=== PATIENT | female | born 1945 | race Caucasian/White ===

== ENCOUNTER 2018-05-01 09:26 | Day surgery (SDC) | payer MEDICARE ==
[2018-05-01] MEDS ORDERED: PROPOFOL 10 MG/ML VIAL IV ONE (09:27)
[2018-05-01] MEDS ORDERED: LIDOCAINE 2% MDV (20MG/ML) 20ML VIAL IV ONE (09:27)
--- NOTE | 2018-05-04 11:30 | Operative Note ---
DATE OF SURGERY: 05/01/2018 SURGEON: Giovanna Acosta MD OPERATION: COLONOSCOPY. INDICATIONS: This is a 72-year-old female with history of colon polyps, last colonoscopy about 5 years ago, who presented for surveillance colonoscopy. POSTOPERATIVE DIAGNOSES: 1. Scattered diverticulosis. 2. Otherwise normal colon and terminal ileal mucosa. ANESTHESIA: Sedation is per Anesthesia. Pulse oximetry was monitored throughout the procedure to maintain O2 saturation of 90% or greater. Supplemental oxygen was administered via nasal cannula. Cardiac and vital signs were monitored throughout the duration of the procedure, and they were stable. The procedure of colonoscopy and risks and alternatives of the procedure, including the risk of bleeding and perforation, among others, were explained to the patient who voiced understanding and agreed to have the procedure done. Physical examination was performed, and the patient was found stable for sedation. PROCEDURE: The patient was placed in the left lateral position. Sedation was initiated. A digital rectal exam was performed and showed some mild external hemorrhoids with no palpable rectal masses. An Olympus PCF-180AL colonoscope was then inserted into the rectum under direct visualization. It was advanced to the cecum without difficulty. The ileocecal valve and appendiceal orifice were identified and photographed. The colonic mucosa was carefully examined upon introduction of the colonoscope. There were scattered diverticula noted in the sigmoid, descending, and transverse colon. There were no other lesions noted. The colonoscope was then withdrawn while carefully examining the colonic mucosal surfaces. No other lesions were noted. The ileocecal valve was intubated and terminal ileal mucosa was inspected for about 10 cm and it appeared normal. The rest of the colonic mucosa appeared normal. In the rectum, retroflexion was performed and grade 1 internal hemorrhoids were noted. The colonoscope was then withdrawn and the procedure was terminated. The patient tolerated the procedure well without any immediate complications. The patient remained with stable vital signs and was transferred to the recovery room. RECOMMENDATIONS: 1. The patient should be on a high-fiber diet. 2. The patient is to have a repeat colonoscopy for surveillance in 5 years. Thank you for allowing me to participate in the care of your patient. CC: Los FOSTER
== END 2018-05-01 11:02 | disposition home or self-care (01) ==
LOC: HOP 09:26
PROVIDERS: ATTEND Internal Medicine Gastroenterology
DX: Z12.11 Encounter for screening for malignant neoplasm of colon (principal); Z86.010 Personal history of colon polyps; K57.30 Diverticulosis of large intestine without perforation or abscess without bleeding; E11.9 Type 2 diabetes mellitus without complications; I10 Essential (primary) hypertension; I50.9 Heart failure, unspecified; J44.9 Chronic obstructive pulmonary disease, unspecified
CPT/HCPCS: 00812; G0105

== ENCOUNTER 2018-10-23 06:58 | Emergency (ER) | payer MEDICARE ==
--- NOTE | 2018-10-23 07:13 | Emergency Department Record ---
History of Present Illness - General Stated Complaint: NI Time Seen by Provider: 10/23/18 07:00 Source: Patient, Family Mode of Arrival: Ambulatory Limitations: No limitations - History of Present Illness Initial Comments: 72 yo presents with shortness of breath for the last 3 days. She felt like she had a "cold" for the last 2 weeks. She has COPD,CAD,CHF and atrial fibrillation. She is a former smoker. She is coughing with thick sputum. She denies fever. She states the chest feels heavy with deep coughing. No leg edema. She has known CAD. She had a stent place in the [place] in 2001. She reports she has not seen a supervisor taping in over a decade. She does not have a current supervisor taping. Dr Escamilla is her PCP. She is not on any home oxygen. MD Complaint: Shortness of breath -: Days(s) Severity: Moderate Quality: Aching Consistency: Constant Improves With: Bronchodilators Worsens With: Coughing Known History Of: COPD, Other (Atrial Fibrillation) Context: Recent URI Associated Symptoms: Chest pain, Cough Treatments Prior to Arrival: Bronchodilator - Related Data Home Medications Medication Instructions Recorded Confirmed Last Taken Aspirin [Aspir-Low] 1 tab PO DAILY 10/23/18 10/23/18 10/22/18 Biotin 5,000 mcg PO DAILY 10/23/18 10/23/18 10/23/18 Clopidogrel Bisulfate [Clopidogrel] 1 tab PO DAILY 10/23/18 10/23/18 10/22/18 Insulin Glargine,Hum.rec.anlog 40 unit SQ QAM 10/23/18 10/23/18 10/22/18 [Lantus] Previous Rx's Medication Instructions Recorded Furosemide [Lasix] 40 mg PO DAILY #0 05/21/14 Ipratropium/Albuterol [Duoneb] 3 ml INH Q4H #120 ampul.neb. 05/21/14 Allergies Allergy/AdvReac Type Severity Reaction Status Date / Time codeine Allergy Unknown VOMITING Verified 05/16/14 10:11 warfarin Allergy Unknown RASH Verified 05/16/14 10:11 morphine AdvReac VOMITING Verified 10/23/18 07:01 Review of Systems Constitutional: Reports: Malaise, Weakness. Denies: Chills, Fever Eyes: Denies: Eye discharge, Eye pain ENT: Reports: Congestion. Denies: Throat pain Respiratory: Reports: Cough, Dyspnea, Wheezes Cardiovascular: Reports: Chest pain, Dyspnea on exertion Endocrine: Reports: Fatigue Gastrointestinal: Denies: Abdominal pain, Diarrhea, Nausea, Vomiting Genitourinary: Denies: Discharge, Dysuria, Frequency Musculoskeletal: Denies: Arthralgia, Back pain, Myalgia Skin: Denies: Bruising, Change in color, Rash Neurological: Denies: Confusion, Headache Psychiatric: Denies: Anxiety Hematological/Lymphatic: Denies: Easy bleeding, Easy bruising Past Medical History - SOCIAL HISTORY Smoking Status: Former smoker - RESPIRATORY Hx Respiratory Disorders: Yes Hx Bronchitis: Yes Hx COPD: Yes Hx Pneumonia: Yes - CARDIOVASCULAR Hx Cardio Disorders: Yes Hx CHF: Yes Hx Hypertension: Yes Hx Irregular Heartbeat: Yes Comment:: viral fluid around her heart - NEURO Hx Neuro Disorders: No - GI Hx GI Disorders: No Comment:: gallbladder removed - Hx Genitourinary Disorders: No - ENDOCRINE Hx Endocrine Disorders: Yes Hx Diabetes: Yes (type 2) Hx Thyroid Disease: Yes (hypo) - MUSCULOSKELETAL Hx Musculoskeletal Disorders: Yes Hx Arthritis: Yes Comment:: back surgery - PSYCH Hx Psych Problems: No - HEMATOLOGY/ONCOLOGY Hx Hematology/Oncology Disorders: No Family Medical History Hx Cancer: Brother/Sister Hx Heart Disease: Mother Hx Resp Disorders: Brother/Sister Physical Exam - General General Appearance: Alert, Oriented x3, Cooperative, Mild distress Limitations: No limitations - Head Head exam: Atraumatic, Normal inspection - Eye Eye exam: Normal appearance. negative: Conjunctival injection - ENT ENT exam: Normal exam, Mucous membranes moist Ear exam: Normal external inspection Nasal Exam: Normal inspection Mouth exam: Normal external inspection - Neck Neck exam: Normal inspection - Respiratory Respiratory exam: Accessory muscle use, Prolonged expiratory, Rhonchi, Wheezes. negative: Normal lung sounds bilaterally - Cardiovascular Cardiovascular Exam: Irregular rhythm, Tachycardia Peripheral Pulses: 2+: Radial (R), Radial (L) - GI/Abdominal GI/Abdominal exam: Soft - Rectal Rectal exam: Deferred - exam: Deferred - Extremities Extremities exam: Normal inspection. negative: Pedal edema, Tenderness - Back Back exam: Denies: CVA tenderness (R), CVA tenderness (L) - Neurological Neurological exam: Alert, Oriented X3 - Psychiatric Psychiatric exam: Normal affect, Normal mood - Skin Skin exam: Dry, Intact, Normal color, Warm Course - Reevaluation(s) Reevaluation #1: EKG #1: 07:35 Rate: 162 Rhythm: afib [place]: L Intervals: normal ST segments: poor R wave production Prior: 04/2014 rate controlled afib 10/23/18 07:38 10/23/18 07:40 The wheeze improved with the Duoneb treatment Solumedrol given 125mg IVP Heparin Bolus and Drip ordered for the Afib with RVR 10/23/18 08:48 K is 4.0 Mg is 1.7 The WBC count is 28. 10/23/18 08:51The CXR was read as consistent with COPD and RLL infiltrate Antibiotics ordered 10/23/18 08:57 Troponin 0.01 BNPPro- 641 Digoxin 0.5 10/23/18 09:07 She is tolerating the cardizem drip. HR average is decreasing. Rocephin and Zithromax ordered for pneumonia Magnesium will be given 10/23/18 09:25 [facility] at [facility] [place] contacted. Dr Preciado accepts the patient for transfer to [facility] [place] 10/23/18 09:26 Influenza Negative Medical Decision Making - Lab Data Result diagrams: 10/23/18 07:00 10/23/18 07:00 Critical Care Time Critical Care Time: Yes Total Critical Care Time: 90 Disposition Disposition: Transfer Clinical Impression: Atrial fibrillation, COPD (chronic obstructive pulmonary disease), Pneumonia Disposition: Acute Care Hospital Transfer Transfer To: [facility] [place] Reason For Transfer: COPD,AFib Accepting Physician: Ilana Time Discussed w/Accepting Physician: 09:26 Condition: (3) Guarded Time of Disposition: 08:58 Quality - Quality Measures Quality Measures: N/A - Blood Pressure Screening Does Patient Have Any of the Following: Active Dx of HTN Blood Pressure Classification: Pre-Hypertensive BP Reading Systolic Measurement: 129 Diastolic Measurement: 86 Screening for High Blood Pressure: Patient Exclusion, Hx of HTN [G9744]
[2018-10-23] MEDS ORDERED: HEPARIN SODIUM 1000 UNIT/1 ML 10ML VIAL IVP ONE (07:16)
[2018-10-23] MEDS ORDERED: DILTIAZEM 25MG/5ML VIAL IV ONE (07:16)
[2018-10-23] MEDS ORDERED: IPRATROPIUM/ALBUTEROL (0.5MG/3MG) NEB INH ONE (07:17)
[2018-10-23] MEDS ORDERED: ALBUTEROL (0.5% CONCENTRATED) 2.5 MG/0.5 ML VIAL.NEB INH ONE (07:17)
[2018-10-23] MEDS ORDERED: HEPARIN SODIUM/D5W 25,000 UNITS/500 ML BAG IV SCH (07:30)
[2018-10-23 08:17] LABS: HEMATOCRIT 44.5 % (35.0-47.0); HEMOGLOBIN 12.8 gm/dl (11.6-16.0); MEAN CELL VOLUME 87.3 fl (81-97); MEAN CORPUSCULAR HEMOGLOBIN 25.1 pg (27-33); MEAN CORPUSCULAR HGB CONC 28.8 g/dl (32-36); MEAN PLATELET VOLUME 10.6 fl (7.4-10.4); PLATELET COUNT 334 K/uL (130-400); RED CELL DISTRIBUTION WIDTH 15.3 % (11.5-14.5)
[2018-10-23 08:22] LABS: WHITE BLOOD COUNT W/O DIFF 28.1 K/uL (4.2-12.2)
[2018-10-23] MEDS ORDERED: DILTIAZEM HCL 125 MG in 0.9 % SODIUM CHLORIDE 100ML 100 ML IV SCH (08:30)
[2018-10-23 08:33] LABS: INR 1.1; PARTIAL THROMBOPLASTIN TIME 22.6 SECONDS (24.5-39.1); PROTHROMBIN TIME (PATIENT) 11.4 SECONDS (9.5-12.1)
[2018-10-23 08:46] LABS: BLOOD UREA NITROGEN 9 mg/dL (8-23); CREATININE 0.8 mg/dL (0.5-0.9); EST GLOMERULAR FILTRATION RATE > 60 mL/min; TOTAL PROTEIN 8.2 g/dL (6.6-8.7)
[2018-10-23] MEDS ORDERED: MAGNESIUM SULFATE 16 MEQ in 0.9 % SODIUM CHLORIDE 100ML 100 ML IV ONE (08:47)
[2018-10-23 08:48] LABS: GLUCOSE,RANDOM 177 mg/dL (74-109)
[2018-10-23] MEDS ORDERED: AZITHROMYCIN 500 MG TABLET PO ONE (08:49)
[2018-10-23] MEDS ORDERED: CEFTRIAXONE 1GM/50ML BAG 1 GM/50 ML BAG IVPB ONE (08:50)
[2018-10-23 08:51] LABS: ALBUMIN 4.1 g/dL (4.0-5.0); ALKALINE PHOSPHATASE 91 U/L (35-104); ALT/SGPT 10 U/L (<33); AST/SGOT 17 U/L (10.0-35.0); DIGOXIN 0.5 ng/mL (0.8-2.0)
[2018-10-23 08:52] LABS: INFLUENZA A NEGATIVE (NEGATIVE); INFLUENZA B NEGATIVE (NEGATIVE)
--- NOTE | 2018-10-27 09:30 | RADIOLOGY REPORT ---
DATE OF SERVICE: 10/23/2018. PORTABLE CHEST CLINICAL HISTORY: Difficulty breathing. TECHNIQUE: Portal AP upright view of the chest was performed. FINDINGS: Cardiomegaly. Lungs are hyperinflated. Right lower lobe infiltrate/pleural effusion. Osseous structures normal. IMPRESSION: 1. Lungs are hyperinflated. 2. Right lower lobe infiltrate/pleural effusion. MTDD
== END 2018-10-23 10:20 | disposition short-term general hospital (02) ==
LOC: ER 06:58
DX: I48.0 Paroxysmal atrial fibrillation (principal); J18.9 Pneumonia, unspecified organism; J44.9 Chronic obstructive pulmonary disease, unspecified; I50.9 Heart failure, unspecified; I10 Essential (primary) hypertension; E11.9 Type 2 diabetes mellitus without complications; I25.10 Atherosclerotic heart disease of native coronary artery without angina pectoris; Z87.891 Personal history of nicotine dependence
CPT/HCPCS: 99291 ×2; 96365; 96366; 96375; 96368; 99292; 83735; 85730; 85610; 80053; 87400; 84484; 80162; 85027; 83880; 71045; 94640 ×2; 93005; 93010; J0696

== ENCOUNTER 2019-05-22 20:38 | Observation (INO) | payer MEDICARE ==
[2019-05-22] MEDS ORDERED: ALBUTEROL SULFATE (0.083%) 2.5 MG/3 ML NEB INH ONE (20:51)
--- NOTE | 2019-05-22 20:55 | Emergency Department Record ---
History of Present Illness - General Chief Complaint: Shortness of breath Stated Complaint: NI Time Seen by Provider: 05/22/19 20:51 Source: Patient, Family Mode of Arrival: EMS Limitations: No limitations - History of Present Illness Initial Comments: The patient is here due to a 3 day hx of cough, congestion, sputum production and SOB. She has a long hx of COPD and does wear 2 liters of home O2. The patient denies any fever, chills, CP, back pain or AP. MD Complaint: Cough, Shortness of breath Onset/Timin -: Days(s) Known History Of: Congestive heart failure, COPD Associated Symptoms: Cough, Sputum production Treatments Prior to Arrival: Oxygen - Related Data Home Oxygen Therapy: Yes Home Oxygen Amount: 2 Liters Home Medications Medication Instructions Recorded Confirmed Last Taken Apixaban [Eliquis] 5 mg PO BID 05/22/19 05/22/19 Unknown Chlordiazepoxide HCl 25 mg PO BID PRN 05/22/19 05/22/19 05/15/19 Previous Rx's Medication Instructions Recorded Furosemide [Lasix] 40 mg PO DAILY #0 05/21/14 Ipratropium/Albuterol [Duoneb] 3 ml INH Q4H #120 ampul.neb. 05/21/14 Allergies Allergy/AdvReac Type Severity Reaction Status Date / Time codeine Allergy Unknown VOMITING Verified 05/16/14 10:11 warfarin Allergy Unknown RASH Verified 05/16/14 10:11 morphine AdvReac VOMITING Verified 10/23/18 07:01 Travel Screening - Travel/Exposure Within Last 30 Days Have you traveled within the last 30 days?: No - Travel/Exposure Within Last Year Have you traveled outside the [place] in the last year?: No - Additonal Travel Details Have you been exposed to anyone with a communicable illness?: No - Travel Symptoms Symptom Screening: None Review of Systems Constitutional: Reports: Malaise. Denies: Chills, Fever Eyes: Denies: Eye discharge ENT: Reports: Congestion Respiratory: Reports: Cough, Dyspnea. Denies: Hemoptysis Cardiovascular: Denies: Chest pain Endocrine: Reports: Fatigue Gastrointestinal: Denies: Nausea Genitourinary: Denies: Dysuria Musculoskeletal: Denies: Arthralgia Neurological: Denies: Abnormal gait Past Medical History - SOCIAL HISTORY Smoking Status: Former smoker Alcohol Use: None Drug Use: None - RESPIRATORY Hx Respiratory Disorders: Yes Hx Bronchitis: Yes Hx COPD: Yes Hx Pneumonia: Yes - CARDIOVASCULAR Hx Cardio Disorders: Yes Hx CHF: Yes Hx Hypertension: Yes Hx Irregular Heartbeat: Yes Comment:: viral fluid around her heart - NEURO Hx Neuro Disorders: No - GI Hx GI Disorders: No Comment:: gallbladder removed - Hx Genitourinary Disorders: No - ENDOCRINE Hx Endocrine Disorders: Yes Hx Diabetes: Yes (type 2) Hx Thyroid Disease: Yes (hypo) - MUSCULOSKELETAL Hx Musculoskeletal Disorders: Yes Hx Arthritis: Yes Comment:: back surgery - PSYCH Hx Psych Problems: No - HEMATOLOGY/ONCOLOGY Hx Hematology/Oncology Disorders: No Family Medical History Any Significant Family History?: No Hx Cancer: Brother/Sister Hx Heart Disease: Mother Hx Resp Disorders: Brother/Sister Physical Exam - General General Appearance: Alert, Oriented x3, Cooperative, Mild distress (due to NI but she is speaking in full sentences.) - Eye Eye exam: Normal appearance, PERRL - ENT Throat exam: Normal inspection. negative: Tonsillar erythema, Tonsillar exudate - Neck Neck exam: Normal inspection, Full ROM. negative: Tenderness - Respiratory Respiratory exam: Decreased breath sounds. negative: Normal lung sounds bilaterally, Accessory muscle use, Respiratory distress, Rhonchi, Stridor, Wheezes - Cardiovascular Cardiovascular Exam: Normal heart sounds, Irregular rhythm - GI/Abdominal GI/Abdominal exam: Soft, Normal bowel sounds. negative: Tenderness - Extremities Extremities exam: Normal inspection, Full ROM, Normal capillary refill. negative: Pedal edema, Tenderness - Neurological Neurological exam: Alert. negative: Motor sensory deficit Course Vital Signs 05/22/19 20:44 Temperature 98.2 F Pulse Rate [ 89 Pulse Ox Probe] Respiratory 28 H Rate Blood Pressure 131/82 [Left Arm] Pulse Ox 96 - Reevaluation(s) Reevaluation #1: The patient is doing a lot better at this time. Her breathing is much improved and her aeration is a lot better. 05/22/19 21:52 Reevaluation #2: The patient is doing better at this time but is still having some coughing and dyspnea. Her lung aeration is much improved but now there are wheezes in the lower lobes. Because of her extensive hx of COPD I did recommend a short stay hospital admission and did agree. 05/22/19 22:08 Medical Decision Making - Data Complexity MDM Data: Labs Ordered and/or Reviewed, X-Ray Ordered and/or Reviewed, EKG Ordered and/or Reviewed - Lab Data Result diagrams: 05/22/19 21:23 05/22/19 21:23 - EKG Data -: EKG Interpreted by Me EKG: No Acute Changes, Unchanged From Previous - Radiology Data Radiology results: Report reviewed (CXR: COPD, Neg for acute changes.) Disposition Disposition: Admit Clinical Impression: COPD (chronic obstructive pulmonary disease) Qualifiers: COPD type: unspecified COPD Qualified Code(s): J44.9 - Chronic obstructive pulmonary disease, unspecified Disposition: Still a Patient at [facility] Decision to Admit: Admit from ER Decision to Admit Date: 05/22/19 Decision to Admit Time: 22:09 Accepting Physician: Lorraine Seymour Discussed w/Accepting Physician: 22:09 Condition: (2) Stable Forms: Patient Portal Access Time of Disposition: 22:09 Quality - Quality Measures Quality Measures: N/A - Blood Pressure Screening View Details: Yes Does Patient Have Any of the Following: No Blood Pressure Classification: Pre-Hypertensive BP Reading Systolic Measurement: 131 Diastolic Measurement: 82 Screening for High Blood Pressure: < Pre-Hypertensive BP, F/U Documented > [G8950] Pre-Hypertensive Follow-up Interventions: Referral to alternative/primary care provider.
[2019-05-22] MEDS ORDERED: MAGNESIUM SULFATE 16 MEQ in 0.9 % SODIUM CHLORIDE 100ML 100 ML IV ONE (20:56)
--- NOTE | 2019-05-22 21:29 | RADIOLOGY REPORT ---
EXAMINATION: Two View Chest Radiographs EXAM DATE: 05/22/2019 9:21 PM TECHNIQUE: Frontal and lateral views INDICATION: cough COMPARISON: Chest x-ray 10/23/2018 ENCOUNTER: Not applicable FINDINGS: Lungs are hyperinflated. Blunting of the right costophrenic angle. Moderately extensive coarse reticu lar opacity with basilar predominance as before. Cardiac silhouette is not enlarged. Diaphragm is fla ttened. Osteopenia. Probable benign calcification projecting over the left breast as before. IMPRESSION: 1. Emphysema with chronic interstitial change at the lung bases. There is a small right pleural effus ion. No dense consolidative change. Dictated by: Chava Patel MD on 05/22/2019 9:25 PM. .
[2019-05-22 21:30] LABS: HEMOGLOBIN 12.4 gm/dl (11.6-16.0); MEAN CELL VOLUME 90.7 fl (81-97); MEAN CORPUSCULAR HEMOGLOBIN 26.2 pg (27-33); MEAN CORPUSCULAR HGB CONC 28.8 g/dl (32-36); MEAN PLATELET VOLUME 9.6 fl (7.4-10.4); PLATELET COUNT 452 K/uL (130-400); RED BLOOD COUNT 4.74 M/uL (3.80-5.40); WHITE BLOOD COUNT W/O DIFF 13.2 K/uL (4.2-12.2)
[2019-05-22 21:40] LABS: BLOOD UREA NITROGEN 8 mg/dL (8-23); CREATININE 0.7 mg/dL (0.5-0.9); EST GLOMERULAR FILTRATION RATE > 60 mL/min
[2019-05-22 21:41] LABS: TOTAL PROTEIN 7.4 g/dL (6.6-8.7)
[2019-05-22 21:43] LABS: GLUCOSE,RANDOM 210 mg/dL (74-109)
[2019-05-22 21:46] LABS: ALB/GLOB RATIO 1.1 (1.1-1.8); ALBUMIN 3.9 g/dL (4.0-5.0); ALKALINE PHOSPHATASE 92 U/L (35-104); ALT/SGPT 10 U/L (<33); AST/SGOT 17 U/L (10.0-35.0)
[2019-05-22 21:47] LABS: C-REACTIVE PROTEIN 0.73 mg/dL (<0.5); DIGOXIN 1.8 ng/mL (0.8-2.0)
[2019-05-22] MEDS ORDERED: CEFTRIAXONE 1GM/50ML BAG 1 GM/50 ML BAG IVPB ONE (22:07)
[2019-05-22] MEDS ORDERED: ACETAMINOPHEN 500 MG TABLET PO PRN (22:41)
[2019-05-22] MEDS ORDERED: CEFTRIAXONE SODIUM 1 GM in 0.9 % SODIUM CHLORIDE 100ML 100 ML IVPB SCH (22:41)
[2019-05-22] MEDS ORDERED: CHLORDIAZEPOXIDE 25 MG CAPSULE PO PRN (22:41)
[2019-05-22] MEDS ORDERED: SIMVASTATIN 20 MG TABLET PO SCH (23:00)
[2019-05-22] MEDS ORDERED: FLU VAC QS 2019-20 (INPT, 6MO+) 60MCG/0.5ML IM ONE (23:09)
[2019-05-22] MEDS: APIXABAN 5MG TABLET PO SCH (23:38)
[2019-05-23] MEDS: IPRATROPIUM/ALBUTEROL (0.5MG/3MG) NEB INH SCH ×2 (06:01→09:59)
[2019-05-23 06:46] LABS: HEMATOCRIT 39.8 % (35.0-47.0); HEMOGLOBIN 11.2 gm/dl (11.6-16.0); MEAN CELL VOLUME 91.5 fl (81-97); MEAN CORPUSCULAR HEMOGLOBIN 25.7 pg (27-33); MEAN CORPUSCULAR HGB CONC 28.1 g/dl (32-36); MEAN PLATELET VOLUME 9.3 fl (7.4-10.4); PLATELET COUNT 433 K/uL (130-400); RED BLOOD COUNT 4.35 M/uL (3.80-5.40); RED CELL DISTRIBUTION WIDTH 13.8 % (11.5-14.5); WHITE BLOOD COUNT W/O DIFF 9.8 K/uL (4.2-12.2)
[2019-05-23] MEDS ORDERED: METFORMIN ER HCL 500 MG TAB.ER.24H PO SCH (07:00)
[2019-05-23] MEDS ORDERED: LEVOTHYROXINE SODIUM 75 MCG TABLET PO SCH (07:00)
[2019-05-23 07:04] LABS: ALB/GLOB RATIO 1.4 (1.1-1.8); ALBUMIN 4.1 g/dL (4.0-5.0); ALKALINE PHOSPHATASE 87 U/L (35-104); ALT/SGPT 9 U/L (<33); AST/SGOT 15 U/L (10.0-35.0); BLOOD UREA NITROGEN 7 mg/dL (8-23); CREATININE 0.6 mg/dL (0.5-0.9); EST GLOMERULAR FILTRATION RATE > 60 mL/min; GLUCOSE,RANDOM 78 mg/dL (74-109); TOTAL PROTEIN 7.1 g/dL (6.6-8.7)
[2019-05-23] MEDS: APIXABAN 5MG TABLET PO SCH (09:32)
[2019-05-23] MEDS ORDERED: FUROSEMIDE 40 MG TABLET PO SCH (10:00)
[2019-05-23] MEDS ORDERED: DIGOXIN 125 MCG TABLET PO SCH (10:00)
[2019-05-23] MEDS ORDERED: AMLODIPINE BESYLATE 5MG TAB PO SCH (10:00)
[2019-05-23] MEDS ORDERED: ASPIRIN 81 MG TABEC PO SCH (10:00)
[2019-05-23] MEDS ORDERED: LEVEMIR FLEXTOUCH 100 UNIT/ML INSULIN PEN SQ SCH (10:00)
[2019-05-23] MEDS ORDERED: LISINOPRIL 20 MG TABLET PO SCH (10:00)
[2019-05-23] MEDS ORDERED: CEFTRIAXONE SODIUM 1 GM in 0.9 % SODIUM CHLORIDE 100ML 100 ML IVPB SCH (10:00)
[2019-05-23] MEDS ORDERED: METOPROLOL TART 50 MG TABLET PO SCH (10:00)
[2019-05-23] MEDS ORDERED: POTASSIUM CHLORIDE 20 MEQ TABLET PO SCH (10:00)
--- NOTE | 2019-05-23 12:29 | History & Physical ---
History of Present Illness - Date of Service Date of Service for History & Physical: 05/23/19 - History of Present Illness Admitting Diagnosis: 1. Acute COPD Exacerbation. History of Present Illness: Isis Raza is a 73 y.o. F who presented to the [facility] ED after a 3 day hx of cough, congestion, sputum and SOB. Has hx of COPD and CHF and wears 2L O2 per NC at home. PMHx: COPD, CHF, DMII, hypothyroidism PCP: Dr. Escamilla ED Course -Vitals: T 98.2, HR 89, BP 131/82, HR 28, SPO2 96% -CXR: Emphysema, small right pleural effusion -Labs: WBC 13.2, K+ 5.1, Creatinine 0.7, CRP 0.73, BNP 880, Trops < 0.010 05/23/19 1215 Vitals: T 98.1, HR 67, BP 129/86, RR 16, SPO2 93% Was evaluated sitting up in bed, spouse at bedside. Reported feeling "100% better today". Is having some white colored sputum. Reported that she does nebulizer treatments at home and has continuous home O2. Has portable conservator to carry around, which her spouse brought today. Reported feeling well enough to go home. Travel Screening - Travel/Exposure Within Last 30 Days Have you traveled within the last 30 days?: No - Travel/Exposure Within Last Year Have you traveled outside the [place] in the last year?: No - Additonal Travel Details Have you been exposed to anyone with a communicable illness?: No - Travel Symptoms Symptom Screening: None Review of Systems Reviewed: No additional complaints except as noted below Constitutional: Denies: Chills, Fever Eyes: Denies: Eye discharge Respiratory: Denies: Hemoptysis Cardiovascular: Denies: Chest pain Gastrointestinal: Denies: Nausea Genitourinary: Denies: Dysuria Musculoskeletal: Denies: Arthralgia Neurological: Denies: Abnormal gait Past Medical History - SOCIAL HISTORY Smoking Status: Former smoker Alcohol Use: None Drug Use: None - RESPIRATORY Hx Respiratory Disorders: Yes Hx Bronchitis: Yes Hx COPD: Yes Hx Pneumonia: Yes - CARDIOVASCULAR Hx Cardio Disorders: Yes Hx Cardiac Cath: Yes (PTCA with 1 stent) Hx CHF: Yes Hx Hypertension: Yes Hx Irregular Heartbeat: Yes Comment:: viral fluid around her heart - NEURO Hx Neuro Disorders: No - GI Hx GI Disorders: No Comment:: gallbladder removed - Hx Genitourinary Disorders: No - ENDOCRINE Hx Endocrine Disorders: Yes Hx Diabetes: Yes (type 2) Hx Thyroid Disease: Yes (hypo) - MUSCULOSKELETAL Hx Musculoskeletal Disorders: Yes Hx Arthritis: Yes Comment:: back surgery 1969' - PSYCH Hx Psych Problems: Yes Hx Anxiety: Yes (takes Librium PRN) - HEMATOLOGY/ONCOLOGY Hx Hematology/Oncology Disorders: No Family Medical History Any Significant Family History?: No Hx Cancer: Brother/Sister Hx Heart Disease: Mother Hx Resp Disorders: Brother/Sister H&P Meds/Allergies - Allergies Allergies: Allergies Allergy/AdvReac Type Severity Reaction Status Date / Time codeine Allergy Unknown VOMITING Verified 05/16/14 10:11 warfarin Allergy Unknown RASH Verified 05/16/14 10:11 morphine AdvReac VOMITING Verified 10/23/18 07:01 - Home Medications Home Medications Medication Instructions Recorded Confirmed Last Taken Apixaban [Eliquis] 5 mg PO BID 05/22/19 05/22/19 Unknown Chlordiazepoxide HCl 25 mg PO BID PRN 05/22/19 05/22/19 05/15/19 Previous Rx's Medication Instructions Recorded Furosemide [Lasix] 40 mg PO DAILY #0 05/21/14 Ipratropium/Albuterol [Duoneb] 3 ml INH Q4H #120 ampul.neb. 05/21/14 Acetaminophen [Tylenol 500Mg Tab] 500 mg PO Q6H PRN tablet 05/23/19 Doxycycline Monohydrate 100 mg PO BID #20 capsule 05/23/19 Ipratropium/Albuterol [Duoneb] 3 ml INH RESP.Q4H.WA ampul.neb 05/23/19 - Active Medications Active Medications: Current Medications Acetaminophen (Tylenol 500mg Tab) 500 mg PO Q6H PRN PRN Reason: PAIN - MILD(1-4)/FEVER Albuterol/Ipratropium (Duoneb) 3 ml INH RESP.Q4H.WA EMELINA Last Admin: 05/23/19 09:59 Dose: 3 ml Documented by: Amlodipine Besylate (Norvasc) 10 mg PO DAILY [facility] Last Admin: 05/23/19 09:32 Dose: 10 mg Documented by: Apixaban (Eliquis) 5 mg PO BID [facility] Last Admin: 05/23/19 09:32 Dose: 5 mg Documented by: Aspirin (Ecotrin (Ec)) 81 mg PO DAILY [facility] Last Admin: 05/23/19 09:32 Dose: 81 mg Documented by: Chlordiazepoxide HCl (Librium) 25 mg PO BID PRN PRN Reason: ANXIETY Digoxin (Lanoxin) 250 mcg PO DAILY [facility] Last Admin: 05/23/19 09:32 Dose: 250 mcg Documented by: Furosemide (Lasix) 40 mg PO DAILY [facility] Last Admin: 05/23/19 09:32 Dose: 40 mg Documented by: Ceftriaxone Sodium 1 gm/ (Sodium Chloride) 100 mls @ 100 mls/hr IVPB Q12H [facility] Stop: 05/28/19 10:01 Last Infusion: 05/23/19 10:26 Dose: Infused Documented by: Insulin Detemir (Levemir Flextouch) 40 unit SQ QAM [facility] Last Admin: 05/23/19 09:50 Dose: 40 unit Documented by: Levothyroxine Sodium (Synthroid) 75 mcg PO DAILYTHY [facility] Last Admin: 05/23/19 07:52 Dose: 75 mcg Documented by: Lisinopril (Zestril) 40 mg PO DAILY [facility] Last Admin: 05/23/19 09:32 Dose: 40 mg Documented by: Metformin HCl (Glucophage Xr) 500 mg PO BIDAC [facility] Last Admin: 05/23/19 07:55 Dose: Not Given Documented by: Metoprolol Tartrate (Lopressor) 50 mg PO BID [facility] Last Admin: 05/23/19 09:32 Dose: 50 mg Documented by: Potassium Chloride (Klor-Con) 20 meq PO DAILY [facility] Last Admin: 05/23/19 09:41 Dose: 20 meq Documented by: Simvastatin (Zocor) 40 mg PO QHS [facility] Last Admin: 05/22/19 23:38 Dose: 40 mg Documented by: Physical Exam - Vital Signs Vital Signs: Vital Signs - Last 24 Hrs Temp Pulse Pulse Resp BP BP Pulse Ox 05/23/19 11:39 98.1 F 67 16 129/56 93 L 05/23/19 10:07 68 18 96 05/23/19 08:00 98.0 F 85 17 152/70 93 L 05/23/19 06:01 85 20 91 L 05/23/19 06:00 97.3 F L 80 18 119/58 91 L 05/23/19 00:12 97.5 F L 83 18 135/56 95 05/22/19 22:35 98.1 F 94 H 20 139/68 93 L 05/22/19 22:29 68 24 120/62 94 L 05/22/19 20:57 81 20 05/22/19 20:44 98.2 F 89 28 H 131/82 96 - General General Appearance: Alert, Oriented x3, Cooperative, No acute distress Limitations: No limitations - Eye Eye exam: Normal appearance, PERRL - ENT Throat exam: Normal inspection. negative: Tonsillar erythema, Tonsillar exudate - Neck Neck exam: Normal inspection, Full ROM. negative: Tenderness - Respiratory Respiratory exam: negative: Normal lung sounds bilaterally, Accessory muscle use, Respiratory distress, Rhonchi, Stridor, Wheezes - Cardiovascular Cardiovascular Exam: Normal heart sounds, Irregular rhythm - GI/Abdominal GI/Abdominal exam: Soft, Normal bowel sounds. negative: Tenderness - Extremities Extremities exam: Normal inspection, Full ROM, Normal capillary refill. negative: Pedal edema, Tenderness - Neurological Neurological exam: Alert, Oriented X3. negative: Motor sensory deficit Results - Labs Result Diagrams: 05/23/19 06:20 05/23/19 06:20 Labs Last 24 Hours: Laboratory Results - last 24 hr 05/22/19 05/22/19 05/22/19 21:23 21:23 21:23 WBC 13.2 H RBC 4.74 Hgb 12.4 Hct 43.0 MCV 90.7 MCH 26.2 L MCHC 28.8 L RDW 14.0 Plt Count 452 H MPV 9.6 Neutrophils % 78.0 Eosinophils % Not Reportable Basophils % Not Reportable Absolute Neutrophils TNP Lymphocytes 15.0 L Monocytes 6.0 Basophils 1.0 Sodium 136 Potassium 5.1 H Chloride 91 L Carbon Dioxide 29.0 Anion Gap 16.0 BUN 8 Creatinine 0.7 Estimated GFR > 60 POC Glucose Random Glucose 210 H Calcium 9.7 Total Bilirubin 0.40 AST 17 ALT 10 Alkaline Phosphatase 92 Troponin T < 0.010 C-Reactive Protein NT-Pro-B Natriuret Pep Total Protein 7.4 Albumin 3.9 L Globulin 3.5 Albumin/Globulin Ratio 1.1 Digoxin 05/22/19 05/22/19 05/23/19 21:23 21:23 06:20 WBC 9.8 RBC 4.35 Hgb 11.2 L Hct 39.8 MCV 91.5 MCH 25.7 L MCHC 28.1 L RDW 13.8 Plt Count 433 H MPV 9.3 Neutrophils % 72.0 Eosinophils % Not Reportable Basophils % Not Reportable Absolute Neutrophils TNP Lymphocytes 18.0 Monocytes 10.0 H Basophils Sodium Potassium Chloride Carbon Dioxide Anion Gap BUN Creatinine Estimated GFR POC Glucose Random Glucose Calcium Total Bilirubin AST ALT Alkaline Phosphatase Troponin T C-Reactive Protein 0.73 H NT-Pro-B Natriuret Pep 880.00 H Total Protein Albumin Globulin Albumin/Globulin Ratio Digoxin 1.8 05/23/19 05/23/19 06:20 09:53 WBC RBC Hgb Hct MCV MCH MCHC RDW Plt Count MPV Neutrophils % Eosinophils % Basophils % Absolute Neutrophils Lymphocytes Monocytes Basophils Sodium 142 Potassium 4.5 Chloride 95 L Carbon Dioxide 38.0 H Anion Gap 9.0 BUN 7 L Creatinine 0.6 Estimated GFR > 60 POC Glucose 150 H Random Glucose 78 Calcium 9.5 Total Bilirubin 0.30 AST 15 ALT 9 Alkaline Phosphatase 87 Troponin T C-Reactive Protein NT-Pro-B Natriuret Pep Total Protein 7.1 Albumin 4.1 Globulin 3.0 Albumin/Globulin Ratio 1.4 Digoxin VTE H&P Assessment - Risk for VTE Risk for VTE: Yes Risk Level: High Risk Assessment Date: 05/23/19 Risk Assessment Time: 12:15 VTE Orders Placed or Will Be Placed: No VTE Reason for No Prophylaxis: Not Indicated (Pt discharging) Plan - Detailed Diagnosis and Plan (1) COPD (chronic obstructive pulmonary disease) Status: Acute Qualifiers: COPD type: unspecified COPD Qualified Code(s): J44.9 - Chronic obstructive pulmonary disease, unspecified Base Code: J44.9 - CHRONIC OBSTRUCTIVE PULMONARY DISEASE, UNSPECIFIED Comment: 05/23/19 -Feels improvement after breathing treatments and IV Rocephin x 2 doses -Has home O2 and nebulizer machine and treatments at home -Stop Rocephine, Start Doxycycline 100mg PO BID (2) DVT prophylaxis Status: Acute Base Code: Z29.9 - ENCOUNTER FOR PROPHYLACTIC MEASURES, UNSPECIFIED Comment: 05/23/19 -High Risk -Pt ambulatory and discharging from hospital, had a 12 hour stay. (3) Full code status Status: Acute Base Code: Z78.9 - OTHER SPECIFIED HEALTH STATUS Comment: 05/23/19 -Full code this admission
--- NOTE | 2019-05-23 12:37 | Discharge Summary ---
Providers Discharge Summary Date: 05/23/19 Date of admission: 05/22/19 22:32 Attending physician: SAMMI MORLEY Primary care physician: MARANDA ESCAMILLA D.O. Physical Exam - Vital Signs Vital Signs: Vital Signs - Last 24 Hrs Temp Pulse Pulse Resp BP BP Pulse Ox 05/23/19 11:39 98.1 F 67 16 129/56 93 L 05/23/19 10:07 68 18 96 05/23/19 08:00 98.0 F 85 17 152/70 93 L 05/23/19 06:01 85 20 91 L 05/23/19 06:00 97.3 F L 80 18 119/58 91 L 05/23/19 00:12 97.5 F L 83 18 135/56 95 05/22/19 22:35 98.1 F 94 H 20 139/68 93 L 05/22/19 22:29 68 24 120/62 94 L 05/22/19 20:57 81 20 05/22/19 20:44 98.2 F 89 28 H 131/82 96 - General General Appearance: Alert, Oriented x3, Cooperative, No acute distress Limitations: No limitations - Eye Eye exam: Normal appearance, PERRL - ENT Throat exam: Normal inspection. negative: Tonsillar erythema, Tonsillar exudate - Neck Neck exam: Normal inspection, Full ROM. negative: Tenderness - Respiratory Respiratory exam: Decreased breath sounds. negative: Normal lung sounds bilaterally, Accessory muscle use, Respiratory distress, Rhonchi, Stridor, Wheezes - Cardiovascular Cardiovascular Exam: Normal heart sounds, Irregular rhythm - GI/Abdominal GI/Abdominal exam: Soft, Normal bowel sounds. negative: Tenderness - Extremities Extremities exam: Normal inspection, Full ROM, Normal capillary refill. negative: Pedal edema, Tenderness - Neurological Neurological exam: Alert. negative: Motor sensory deficit Hospitalization - Hospitalization Admission Diagnosis: 1. Acute COPD Exacerbation. - Problem List/Discharge Diagnosis (1) COPD (chronic obstructive pulmonary disease) Status: Acute Discharge Diagnosis: COPD type: unspecified COPD Qualified Code(s): J44.9 - Chronic obstructive pulmonary disease, unspecified Base Code: J44.9 - CHRONIC OBSTRUCTIVE PULMONARY DISEASE, UNSPECIFIED Comment: 05/23/19 -Feels improvement after breathing treatments and IV Rocephin x 2 doses -Has home O2 and nebulizer machine and treatments at home -Stop Rocephine, Start Doxycycline 100mg PO BID (2) DVT prophylaxis Status: Acute Base Code: Z29.9 - ENCOUNTER FOR PROPHYLACTIC MEASURES, UNSPECIFIED Comment: 05/23/19 -High Risk -Pt ambulatory and discharging from hospital, had a 12 hour stay. (3) Full code status Status: Acute Base Code: Z78.9 - OTHER SPECIFIED HEALTH STATUS Comment: 05/23/19 -Full code this admission - Hospitalization Course Disposition: Home, Self-Care Hospital Course: Isis Raza is a 73 y.o. F who presented to the [facility] ED after a 3 day hx of cough, congestion, sputum and SOB. Has hx of COPD and CHF and wears 2L O2 per NC at home. PMHx: COPD, CHF, DMII, hypothyroidism PCP: Dr. Escamilla ED Course -Vitals: T 98.2, HR 89, BP 131/82, HR 28, SPO2 96% -CXR: Emphysema, small right pleural effusion -Labs: WBC 13.2, K+ 5.1, Creatinine 0.7, CRP 0.73, BNP 880, Trops < 0.010 05/23/19 1215 Vitals: T 98.1, HR 67, BP 129/86, RR 16, SPO2 93% Was evaluated sitting up in bed, spouse at bedside. Reported feeling "100% better today". Is having some white colored sputum. Reported that she does nebulizer treatments at home and has continuous home O2. Has portable conservator to carry around, which her spouse brought today. Reported feeling well enough to go home. Procedures: Imaging and X-Rays 05/22/19 20:51 CHEST 2 VIEWS [RAD] Stat Cardiology Procedures 05/22/19 20:51 Rib Builder NOW EKG NOW 05/22/19 22:41 Rib Builder .Continuous Abnormal Labs: Abnormal Lab Results 05/22/19 05/22/19 05/22/19 Range/Units 21:23 21:23 21:23 WBC 13.2 H (4.2-12.2) K/uL Hgb (11.6-16.0) gm/dl MCH 26.2 L (27-33) pg MCHC 28.8 L (32-36) g/dl Plt Count 452 H (130-400) K/uL Lymphocytes 15.0 L (16-45) % Monocytes (0-9) % Potassium 5.1 H (3.4-4.5) mmol/L Chloride 91 L (98-107) mmol/L Carbon Dioxide (22-29) mmol/L BUN (8-23) mg/dL POC Glucose (70-110) mg/dL Random Glucose 210 H (74-109) mg/dL C-Reactive Protein 0.73 H (<0.5) mg/dL NT-Pro-B Natriuret Pep (<450) pg/mL Albumin 3.9 L (4.0-5.0) g/dL 05/22/19 05/23/19 05/23/19 Range/Units 21:23 06:20 06:20 WBC (4.2-12.2) K/uL Hgb 11.2 L (11.6-16.0) gm/dl MCH 25.7 L (27-33) pg MCHC 28.1 L (32-36) g/dl Plt Count 433 H (130-400) K/uL Lymphocytes (16-45) % Monocytes 10.0 H (0-9) % Potassium (3.4-4.5) mmol/L Chloride 95 L (98-107) mmol/L Carbon Dioxide 38.0 H (22-29) mmol/L BUN 7 L (8-23) mg/dL POC Glucose (70-110) mg/dL Random Glucose (74-109) mg/dL C-Reactive Protein (<0.5) mg/dL NT-Pro-B Natriuret Pep 880.00 H (<450) pg/mL Albumin (4.0-5.0) g/dL 05/23/19 Range/Units 09:53 WBC (4.2-12.2) K/uL Hgb (11.6-16.0) gm/dl MCH (27-33) pg MCHC (32-36) g/dl Plt Count (130-400) K/uL Lymphocytes (16-45) % Monocytes (0-9) % Potassium (3.4-4.5) mmol/L Chloride (98-107) mmol/L Carbon Dioxide (22-29) mmol/L BUN (8-23) mg/dL POC Glucose 150 H (70-110) mg/dL Random Glucose (74-109) mg/dL C-Reactive Protein (<0.5) mg/dL NT-Pro-B Natriuret Pep (<450) pg/mL Albumin (4.0-5.0) g/dL Condition at Discharge: (2) Stable Discharge Medications - Discharge Medications Prescriptions: Doxycycline Monohydrate 100 mg PO BID #20 capsule Home Medications: Ambulatory Orders Amlodipine Besylate [Norvasc] 10 mg PO DAILY 05/16/14 [Last Taken 10/22/18] Digoxin [Lanoxin] 250 mcg PO DAILY 05/16/14 [Last Taken 10/22/18] Levothyroxine Sodium 75 mcg PO DAILY 05/16/14 [Last Taken 10/22/18] Lisinopril [Zestril] 40 mg PO DAILY 05/16/14 [Last Taken 10/22/18] Metformin ER HCl [Glucophage Xr] 500 mg PO BID 05/16/14 [Last Taken 10/22/18] Metoprolol Tartrate [Lopressor] 50 mg PO BID 05/16/14 [Last Taken 10/22/18] Potassium Chloride [K-Tab ER] 20 meq PO DAILY 05/16/14 [Last Taken 10/22/18] Simvastatin [Zocor] 40 mg PO QHS 05/16/14 [Last Taken 10/22/18] Furosemide [Lasix] 40 mg PO DAILY #0 05/21/14 [Last Taken 10/22/18] Ipratropium/Albuterol [Duoneb] 3 ml INH Q4H #120 ampul.neb. 05/21/14 [Last Taken 10/22/18] Aspirin [Aspir-Low] 1 tab PO DAILY 10/23/18 [Last Taken 10/22/18] Biotin 5,000 mcg PO DAILY 10/23/18 [Last Taken 10/23/18] Insulin Glargine,Hum.rec.anlog [Lantus] 40 unit SQ QAM 10/23/18 [Last Taken 10/22/18] Apixaban [Eliquis] 5 mg PO BID 05/22/19 [Last Taken Unknown] Chlordiazepoxide HCl 25 mg PO BID PRN 05/22/19 [Last Taken 05/15/19] Acetaminophen [Tylenol 500Mg Tab] 500 mg PO Q6H PRN tablet 05/23/19 [Last Taken Unknown] Doxycycline Monohydrate 100 mg PO BID #20 capsule 05/23/19 [Last Taken Unknown] Ipratropium/Albuterol [Duoneb] 3 ml INH RESP.Q4H.WA ampul.neb 05/23/19 [Last Taken Unknown] Discharge Plan - Discharge Instructions Instructions: Doxycycline (By mouth), COPD (Chronic Obstructive Pulmonary Disease) (DC) Additional Instructions: Start Doxycycline 100mg, take 1 capsule twice a day until gone Resume home medications Continue with nebulizer treatments Activity as tolerated Diet as tolerated Follow up with your Primary Care Provider in 1 week Thank you for choosing [facility]!!! Quality Measures - Quality Measures Quality Measures: Atrial Fibrillation & Atrial Flutter: Chronic Anticoagulation Therapy, Advance Directives, Documentation of Current Medications in Medical Record, Elder Maltreatment Screen and Follow-Up Plan, Screening for High Blood Pressure and F/U Documented - Current Medications Quality Measure: Measure #130: Documentation of Current Medications Documentation of Current Medications: <Current Medications Documented/Reviewed> [B8650] - Blood Pressure Screening Quality Measure: Screening for High Blood Pressure and Follow-Up Documented Does Patient Have Any of the Following: Active Dx of HTN Blood Pressure Classification: Normal BP Reading Systolic Measurement: 114 Diastolic Measurement: 66 Screening for High Blood Pressure: Patient Exclusion, Hx of HTN [E8804] - Atrial Fibrillation and Atrial Flutter Quality Measure: Atrial Fibrillation & Atrial Flutter: Chronic Anticoagulation Therapy Does Patient Have Any of the Following: No CHADS2 Risk Stratification: Age 75 or Greater, Hypertension, Diabetes Mellitus, Heart Failure or Impaired LVSF Risk Stratification Summary: One or more high risk factors OR more than one moderate risk factor exists. [G8972] Anticoagulation Therapy: <Oral anticoagulant Prescribed> [F8938] - Advance Directives Quality Measure: Measure #47: Care Plan Advance Directives Established: Yes Advance Directives Information Provided To Patient: No Advance Directives on File: No Living Will: No Power of Tanker Driver: Yes Power of Tanker Driver Name: ALBINO RAZA Advance Care Planning: <Care Plan/Decision Maker Documented; Discussed & Documented> [[id number]] - Elder Abuse Suspicion Index Screening: Elder Abuse Suspicion Index Screening Rely on people for bathing, dressing, shopping, banking, etc: Yes Prevented from getting food, clothes, medication, etc: No Made to feel shamed or threatened by someone: No Forced to sign papers or use money against will: No Feel afraid, touched in ways not wanted or hurt physically: No Poor eye contact, withdrawn, malnourished, cuts or bruises: No Screening Result: Negative result EASI Reference Information: Sherry TAMEZ, Stormy Garcia, Lynette Correa, Rachid Smith.Development and validation of a tool to assist physicians identification of elder abuse: The Elder Abuse Suspicion Index (EASI ). Journal of Elder Abuse and Neglect, 2008; 20 (3): 276-300. - Elder Maltreatment Screen Quality Measures: Elder Maltreatment Screen and Follow-Up Plan Elder Maltreatment Screen: <Negative, No Follow-Up Plan Required> [G8734]
== END 2019-05-23 13:29 | disposition home or self-care (01) ==
LOC: ER 20:38 → MEDSURG 22:32
PROVIDERS: ADMIT Internal Medicine; ATTEND Internal Medicine
DX: J44.1 Chronic obstructive pulmonary disease with (acute) exacerbation (principal); R06.02 Shortness of breath; R05 Cough; I50.9 Heart failure, unspecified; Z79.01 Long term (current) use of anticoagulants; I10 Essential (primary) hypertension; E03.9 Hypothyroidism, unspecified; Z99.81 Dependence on supplemental oxygen; M19.90 Unspecified osteoarthritis, unspecified site; Z87.891 Personal history of nicotine dependence; Z95.5 Presence of coronary angioplasty implant and graft; Z98.61 Coronary angioplasty status; Z23 Encounter for immunization
CPT/HCPCS: 36416; 71046; 80053; 80162; 82948; 83880; 84484; 85027; 86140; 90686; 93005; 93010; 94640; 94761; 96365; 96374; 99220; 99285; J0696; J7613